=== PATIENT | female | born 1970 | race Caucasian/White ===

== ENCOUNTER → 2017-02-13 | Outpatient (CLI) | payer MEDICAID | LOC: FIMAGING 11:23 | PROVIDERS: ATTEND Family Medicine | DX: R10.9 Unspecified abdominal pain (principal); R14.0 Abdominal distension (gaseous); R19.7 Diarrhea, unspecified ==

== ENCOUNTER → 2018-08-12 | Outpatient (CLI) | payer MEDICAID | LOC: FIMAGING 13:52 | PROVIDERS: ATTEND Family Medicine | DX: M18.12 Unilateral primary osteoarthritis of first carpometacarpal joint, left hand (principal); M25.532 Pain in left wrist; M25.511 Pain in right shoulder ==

== ENCOUNTER 2018-10-15 23:07 | Emergency (ER) | payer MEDICAID | END 2018-10-16 01:03 | disposition home or self-care (01) ==

== ENCOUNTER → 2019-01-19 | Outpatient (CLI) | payer MEDICAID | LOC: FIMAGING 11:49 ==

== ENCOUNTER → 2019-02-03 | Outpatient (CLI) | payer MEDICAID | LOC: FIMAGING 09:27 ==